=== PATIENT | female | born 1990 ===

== ENCOUNTER 2017-10-19 08:36 | Inpatient (IN) ==
[2017-10-19] MEDS ORDERED: FAMOTIDINE 20 MG/2 ML VIAL IV ONE (09:22)
[2017-10-19] MEDS ORDERED: CITRIC ACID/SODIUM CITRATE 30 ML UDCUP PO ONE (09:22)
[2017-10-19] MEDS ORDERED: CLINDAMYCIN INJ 900 MG in PREMIX 1 EACH IV ONE (09:29)
[2017-10-19] MEDS: LACTATED RINGERS 1,000 ML IV SCH ×3 (09:30→21:45)
[2017-10-19 10:39] LABS: Basophils % 0.1 % (0.0-0.8); Eosinophils % 0.1 % (0.00-10.9); Hematocrit 31.6 VOL% (35.7-47.0); Hemoglobin 10.7 GM/DL (12.0-16.0); Immature Granulocytes % 0.2 %; Immature Granulocytes Absolute 0.02 #; Lymphocytes # 1.7 10*3/uL (1.4-4.0); Lymphocytes % 19.7 % (21.3-54.2); Mean Corpuscular HGB Conc 33.9 GM/DL (32-36); Mean Corpuscular Hemoglobin 32 PG (27-34); Mean Corpuscular Volume 95.2 FL (87-102); Mean Platelet Volume 9.2 FL (9.6-12.0); Monocytes # 0.5 10*3/uL (0.11-0.8); Monocytes % 6.2 % (1.7-12.7); Neutrophils # 6.2 10*3/uL (1.4-7.4); Neutrophils % 73.7 % (38.7-73.9); Platelet Count 266 T/CUMM (130-400); Red Blood Count 3.32 MC/CUMM (3.8-5.5); Red Cell Distribution Width 13.3 % (9.3-17.3); White Blood Count 8.4 T/CUMM (4-12)
[2017-10-19 11:03] LABS: Albumin 2.4 G/DL (3.4-5.0); Bilirubin,Total 0.5 MG/DL (0.2-1.0); Osmolality,Calculated 272.5 MOS/KG (273-304); Potassium 3.8 MMOL/L (3.5-5.1); Total Protein 6.1 G/DL (6.4-8.3)
[2017-10-19] MEDS ORDERED: OXYTOCIN 10 UNIT/ML VIAL IM ONE (12:06)
[2017-10-19] MEDS ORDERED: OXYTOCIN/LR 30 UNIT/1,000 ML BAG IV ONE (12:16)
[2017-10-19] MEDS ORDERED: BUPIVACAINE SPINAL 0.75% 2 ML AMP SPINAL ONE (13:14)
[2017-10-19] MEDS ORDERED: MORPHINE 10 MG/10 ML VIAL ONE (13:16)
[2017-10-19 13:24] LABS: Cord Arterial Blood HCO3 19.7 MMOL/L
[2017-10-19 13:25] LABS: Cord Venous Blood HCO3 23.2 MMOL/L; Cord Venous Blood PCO2 38.7 MMHG; Cord Venous Blood PO2 37.6 MMHG
[2017-10-19] MEDS ORDERED: OXYTOCIN/LR 20 UNIT/1,000 ML BAG IV ONE ×2 (13:50→15:32)
[2017-10-19] MEDS ORDERED: ONDANSETRON 4 MG/2 ML VIAL ONE (15:29)
[2017-10-19] MEDS ORDERED: ONDANSETRON 4 MG/2 ML VIAL IV PRN ×2 (15:32→17:25)
[2017-10-19] MEDS ORDERED: IBUPROFEN 800 MG TABLET PO PRN (15:32)
[2017-10-19] MEDS ORDERED: ACETAMINOPHEN 325 MG TABLET PO PRN (15:32)
[2017-10-19] MEDS ORDERED: RHO(D) IMMUNE GLOBULIN 300 MCG SYRINGE IM ONE (15:45)
[2017-10-19] MEDS ORDERED: PROMETHAZINE 25 MG/1 ML VIAL IM PRN (16:28)
[2017-10-19] MEDS ORDERED: diphenhydrAMINE 50 MG/1 ML VIAL IV PRN ×2 (16:42→17:25)
[2017-10-19] MEDS ORDERED: diphenhydrAMINE 50 MG/1 ML VIAL ONE (16:44)
[2017-10-19] MEDS ORDERED: HYDROmorphone 2 MG/1 ML VIAL IV PRN (17:25)
[2017-10-19] MEDS ORDERED: hydrOXYzine HCL 25 MG/1 ML VIAL IM PRN (17:25)
[2017-10-19] MEDS ORDERED: SODIUM CHLORIDE 0.9% 1,000 ML IV SCH (17:30)
[2017-10-19] MEDS ORDERED: LACTATED RINGERS 1,000 ML IV SCH (17:30)
[2017-10-19] MEDS ORDERED: SCOPOLAMINE 1.5 MG PATCH TRANSDERM ONE (17:38)
[2017-10-19] MEDS ORDERED: ACETAMINOPHEN 1,000 MG/100 ML VIAL IV ONE (18:00)
[2017-10-19] MEDS: CLINDAMYCIN INJ 900 MG in PREMIX 1 EACH IV SCH (19:48)
[2017-10-19 20:14] LABS: Basophils % 0.1 % (0.0-0.8); Immature Granulocytes % 0.5 %; Immature Granulocytes Absolute 0.07 #; Lymphocytes # 1.1 10*3/uL (1.4-4.0); Lymphocytes % 8.3 % (21.3-54.2); Mean Corpuscular HGB Conc 33.3 GM/DL (32-36); Mean Corpuscular Hemoglobin 32 PG (27-34); Mean Corpuscular Volume 96.5 FL (87-102); Monocytes # 0.7 10*3/uL (0.11-0.8); Monocytes % 5.2 % (1.7-12.7); Neutrophils # 11.7 10*3/uL (1.4-7.4); Neutrophils % 85.9 % (38.7-73.9); Platelet Count 255 T/CUMM (130-400); Red Blood Count 3.11 MC/CUMM (3.8-5.5); Red Cell Distribution Width 13.2 % (9.3-17.3); White Blood Count 13.7 T/CUMM (4-12)
[2017-10-19] MEDS: DOCUSATE SODIUM 100 MG CAPSULE PO SCH (22:18)
[2017-10-20] MEDS: CLINDAMYCIN INJ 900 MG in PREMIX 1 EACH IV SCH (04:34)
[2017-10-20 05:52] LABS: Hemoglobin 9.3 GM/DL (12.0-16.0); Red Blood Count 2.84 MC/CUMM (3.8-5.5); White Blood Count 10.6 T/CUMM (4-12)
[2017-10-20 05:53] LABS: Basophils % 0.2 % (0.0-0.8); Eosinophils # 0.1 10*3/uL (0.0-0.87); Eosinophils % 0.8 % (0.00-10.9); Hematocrit 26.7 VOL% (35.7-47.0); Immature Granulocytes % 0.3 %; Immature Granulocytes Absolute 0.03 #; Lymphocytes # 2.3 10*3/uL (1.4-4.0); Lymphocytes % 21.3 % (21.3-54.2); Mean Corpuscular HGB Conc 34.8 GM/DL (32-36); Mean Corpuscular Hemoglobin 33 PG (27-34); Mean Platelet Volume 8.9 FL (9.6-12.0); Monocytes # 0.8 10*3/uL (0.11-0.8); Monocytes % 7.3 % (1.7-12.7); Neutrophils # 7.5 10*3/uL (1.4-7.4); Neutrophils % 70.1 % (38.7-73.9); Platelet Count 246 T/CUMM (130-400); Red Cell Distribution Width 13.3 % (9.3-17.3)
[2017-10-20] MEDS: LACTATED RINGERS 1,000 ML IV SCH (06:15)
[2017-10-20] MEDS: DOCUSATE SODIUM 100 MG CAPSULE PO SCH ×2 (08:34→20:11)
[2017-10-20] MEDS: SIMETHICONE CHEW 80 MG TABLET PO PRN ×2 (08:34→20:11)
[2017-10-20] MEDS: MAGNESIUM HYDROXIDE SUSP 30 ML UDCUP PO PRN ×2 (08:34→20:11)
[2017-10-20] MEDS: MULTIVITAMIN (PRENATAL) TABLET PO SCH (08:34)
[2017-10-20] MEDS: FERROUS SULFATE 325 MG TABLET PO SCH ×2 (10:52→20:11)
[2017-10-21 07:34] VITALS: BP 119/57
[2017-10-21] MEDS ORDERED: MAGNESIUM CITRATE 300 ML BOTTLE PO ONE (07:37)
[2017-10-21] MEDS: FERROUS SULFATE 325 MG TABLET PO SCH (08:45)
[2017-10-21] MEDS: DOCUSATE SODIUM 100 MG CAPSULE PO SCH (08:45)
[2017-10-21] MEDS: MAGNESIUM HYDROXIDE SUSP 30 ML UDCUP PO PRN (08:45)
[2017-10-21] MEDS: MULTIVITAMIN (PRENATAL) TABLET PO SCH (08:45)
== END 2017-10-21 14:15 | disposition home or self-care (01) | DRG 766 ==
LOC: N.OBOUT 08:36 → N.OB 08:43
PROVIDERS: ADMIT Obstetrics & Gynecology; ATTEND Obstetrics & Gynecology
PROC: LDCSECT (ICD-10-PCS; 2017-10-19 12:15)